=== PATIENT | male | born 1980 | race African-American/Black ===

== ENCOUNTER 2019-11-16 00:01 | Emergency (ER) | payer SELFPAY ==
[~2019-11-16] VITALS: Ht 172.7 cm; Wt 82.0 kg
[2019-11-16] MEDS ORDERED: BACITRACIN ZINC OINT UDPKT TOP ONE (00:30)
[2019-11-16] MEDS ORDERED: TETANUS, DIPHTHERIA, PERTUSSIS VAC/PF 0.5ML (>7YR OLD) IM ONE (00:30)
[2019-11-16] MEDS ORDERED: LIDOCAINE HCL/EPINEPHRINE 1%-EPI 1:100,000 20 ML VIAL INFIL ONE (00:30)
[2019-11-16 02:13] VITALS: BP 123/77
== END 2019-11-16 02:33 | disposition home or self-care (01) ==
LOC: ER 00:01
DX: S01.81XA Laceration without foreign body of other part of head, initial encounter (principal); S02.31XA Fracture of orbital floor, right side, initial encounter for closed fracture; S51.811A Laceration without foreign body of right forearm, initial encounter; Y04.2XXA Assault by strike against or bumped into by another person, initial encounter; Y93.89 Activity, other specified; Y92.89 Other specified places as the place of occurrence of the external cause; Z23 Encounter for immunization
CPT/HCPCS: 12004; 12014; 70450; 70486; 71045; 73090; 90471; 90715; 99285; J3490

== ENCOUNTER 2019-11-26 13:33 | Emergency (ER) | payer SELFPAY ==
[~2019-11-26] VITALS: Ht 175.3 cm; Wt 83.0 kg
[2019-11-26 15:00] VITALS: BP 121/85
== END 2019-11-26 15:01 | disposition home or self-care (01) ==
LOC: ER 13:33
DX: S01.81XD Laceration without foreign body of other part of head, subsequent encounter (principal); X58.XXXD Exposure to other specified factors, subsequent encounter; F12.10 Cannabis abuse, uncomplicated
CPT/HCPCS: 99281